=== PATIENT | male | born 1970 | race Caucasian/White ===

== ENCOUNTER 2017-12-10 14:42 | Outpatient (CLI) | payer OTHER ==
--- NOTE | 2017-12-10 17:42 | CT Report ---
DATE OF SERVICE: 12/10/2017 CT OF SINUSES WITHOUT CONTRAST: 12/10/2017 CLINICAL INDICATION: Chronic sinusitis, pain. TECHNIQUE: Axial CT images of the paranasal sinuses were obtained without contrast, following which sagittal and coronal reconstructions were performed. FINDINGS: There is mucosal thickening in the right greater than left maxillary sinuses, patchy opacification of ethmoid air cells, and mild mucosal thickening in the sphenoid sinus, compatible with chronic sinus disease. The ostiomeatal units are patent bilaterally. No osseous destruction is seen. The visualized orbital contents are unremarkable. IMPRESSION: CHRONIC SINUS DISEASE. In accordance with CT protocol optimization, one or more of the following dose reduction techniques were utilized for this exam: automated exposure control, adjustment of mA and/or KV based on patient size, or use of iterative reconstructive technique. TD: 12/10/2017 18:41
== END 2017-12-10 14:43 | disposition home or self-care (01) ==
LOC: DI 14:42
PROVIDERS: ATTEND Physician Assistant
DX: J32.9 Chronic sinusitis, unspecified (principal)
CPT/HCPCS: 70486

== ENCOUNTER 2023-05-04 08:31 | Outpatient (CLI) | payer OTHER ==
--- NOTE | 2023-05-04 12:26 | XRAY Report ---
PROCEDURE: Hand 3 View BILAT INDICATIONS: BILATERAL THUMB PAIN TECHNIQUE: 3 views of the hand(s) acquired. COMPARISON: None. FINDINGS: Bones: No displaced fracture or dislocation. There is mild arthrosis at the base of the thumbs. No c onvincing erosive changes. Soft tissues: No suspicious calcifications. IMPRESSION: No acute radiographic abnormality. 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 If there is high concern for further derangement, consider MRI evaluation. Reviewed by: Erick Isabel MD on 05/04/2023 12:25 PM PDT Approved by: Erick Isabel MD on 05/04/2023 12:25 PM PDT Station ID: [id number]
--- NOTE | 2023-05-04 15:07 | XRAY Report ---
PROCEDURE: Chest 2 View X-Ray INDICATIONS: COUGH TECHNIQUE: 2 views of the chest were acquired. COMPARISON: None. FINDINGS: Surgical changes and devices: None. Lungs and pleura: No pleural effusions or pneumothorax. Lungs are clear. Mediastinum: Mediastinal contours appear normal. Heart size is normal. Bones and chest wall: No suspicious bony lesions. Overlying soft tissues appear unremarkable. IMPRESSION: No acute cardiopulmonary process. Reviewed by: Lewis Bravo on 05/04/2023 3:05 PM PDT Approved by: Lewis Bravo on 05/04/2023 3:05 PM PDT Station ID: [id number]
== END 2023-05-04 08:32 | disposition home or self-care (01) ==
LOC: DI.S 08:31
PROVIDERS: ATTEND Registered Nurse
DX: R05.9 Cough, unspecified (principal); M19.041 Primary osteoarthritis, right hand; M19.042 Primary osteoarthritis, left hand

== ENCOUNTER 2023-05-17 09:19 | Outpatient (CLI) | payer OTHER | END 2023-05-17 09:20 | disposition home or self-care (01) | LOC: RT 09:19 | PROVIDERS: ATTEND Registered Nurse | DX: R06.09 Other forms of dyspnea (principal) | CPT/HCPCS: 94060; 94727; 94729 ==

== ENCOUNTER 2023-06-14 12:57 | Outpatient (CLI) | payer OTHER ==
--- NOTE | 2023-06-14 16:56 | CT Report ---
PROCEDURE: CHEST WO INDICATIONS: DYSPNEA ON EXERTION TECHNIQUE: Noncontrast 1mm axial images were acquired from the pulmonary apices to the posterior costophrenic an gles. Axial 5 mm soft tissue kernel reconstructions were performed as well as 8 mm axial MIP and cor onal and sagittal 5 mm reformations. For radiation dose reduction, the following was used: automate d exposure control, adjustment of mA and/or kV according to patient size. COMPARISON: None FINDINGS: Image quality: Excellent. Lungs and pleura: No consolidation. No pleural effusions. No pneumothorax. No suspicious pulmonary n odules which require follow up. Mediastinum: Heart size is normal. No pericardial effusion. No large vessel abnormality. No mediastin al adenopathy by size criteria. Calcified right hilar lymph nodes are consistent with chronic granul omatous disease. Chest wall and lower neck: Thyroid is unremarkable. No axillary or supraclavicular adenopathy by size . Bones: No aggressive osseous abnormality. Upper Abdomen: Unremarkable. IMPRESSION: No acute pulmonary process. Reviewed by: Earl Freire MD on 06/14/2023 4:55 PM PDT Approved by: Earl Freire MD on 06/14/2023 4:55 PM PDT Station ID: [id number]
== END 2023-06-14 12:58 | disposition home or self-care (01) ==
LOC: DI 12:57
PROVIDERS: ATTEND Registered Nurse
DX: R06.09 Other forms of dyspnea (principal)

== ENCOUNTER 2023-08-26 09:32 | Outpatient (CLI) | payer OTHER | END 2023-08-26 09:33 | disposition home or self-care (01) | LOC: RT 09:32 | PROVIDERS: ATTEND Internal Medicine Cardiovascular Disease | DX: R06.09 Other forms of dyspnea (principal); R00.2 Palpitations | CPT/HCPCS: 93005 ==

== ENCOUNTER 2023-12-14 14:49 | Outpatient (CLI) | payer OTHER | END 2023-12-14 14:50 | disposition home or self-care (01) | LOC: DI 14:49 | PROVIDERS: ATTEND Internal Medicine Cardiovascular Disease | DX: R00.2 Palpitations (principal); I51.7 Cardiomegaly; I77.810 Thoracic aortic ectasia; I35.1 Nonrheumatic aortic (valve) insufficiency | CPT/HCPCS: 93307 ==